=== PATIENT | female | born 1960 | race Caucasian/White ===

== ENCOUNTER 2016-11-08 19:56 | Emergency (ER) | payer OTHER ==
[~2016-11-08] VITALS: Ht 165.1 cm; Wt 90.7 kg
[~2016-11-08 19:56] MED LIST: '''ZYRTEC PO; ADVAIR 100/501 E1; ADVAIR 100/501 E1 INH; ALBUTEROL0.09 MG/A2 IH; ASPIRIN81 MG PO; AUGMENTIN 875875 MG PO; BIOTIN1 M1 PO; BUPROPION HYDR150 M4 PO; CETIRIZINE10 MG PO; CLARITIN10 MG PO; COLACE100 MG PO; DAYPRO600 M1 PO; FLEXERIL10 MG PO; FLONASE ALLERG9.9 ML NAS; GOOD SENSE ALLE10 MG PO; HYDROXYZINE HCL50 MG PO; MAXZIDE 25 MG-31 TAB PO; MEDROL DOSEPAK4 MG PO; MIDRIN (DURADR1 CAP PO; MOTRIN800 MG PO; MULTIVITAMIN FO1 CAP PO; Motrin,Rufen800 MG PO; NAPROSYN500 MG PO; NASONEX0.05 MG/AC NS; PREDNICOT20 MG PO; PREDNISONE10 MG PO; PREDNISONE20 MG PO; PRILOSEC20 MG PO; ROBITUSSIN AC 110 ML PO; TESSALON PERLE100 M1 PO; TOBRADEX 0.1%-0.5 ML OPH; TRAMADOL HCL50 MG PO; TRIAMTERENE/HCT1 TA3 PO; TYLENOL500 MG PO; VENTOLIN H0.09 MG/AC INH; VIBRAMYCIN100 MG PO; VICODIN 5/500 505 MG PO; VICODIN 500 MG-1 TAB PO; ZITHROMAX250 MG PO; ZOFRAN4 MG PO
== END 2016-11-08 22:18 | disposition home or self-care (01) ==
LOC: ED 19:56
DX: G89.29 Other chronic pain (principal); M25.561 Pain in right knee; Z90.49 Acquired absence of other specified parts of digestive tract; Z79.82 Long term (current) use of aspirin; Z88.1 Allergy status to other antibiotic agents

== ENCOUNTER → 2016-11-25 | Outpatient (CLI) | payer OTHER | END | disposition home or self-care (01) | LOC: MAMMO 11-19 11:30 | DX: Z12.31 Encounter for screening mammogram for malignant neoplasm of breast (principal) ==

== ENCOUNTER 2017-02-02 14:16 | Emergency (ER) | payer OTHER ==
[~2017-02-02] VITALS: Wt 117.9 kg
[2017-02-02] MEDS ORDERED: CITALOPRAM HYDR40 MG PO (14:21)
[2017-02-02] MEDS ORDERED: MEDROL DOSEPAK4 MG PO (15:25)
[2017-02-02] MEDS ORDERED: ZITHROMAX250 MG PO (15:25)
[2017-02-02] MEDS ORDERED: VENTOLIN H0.09 MG/AC INH (15:25)
== END 2017-02-02 15:32 | disposition home or self-care (01) ==
LOC: ED 14:16
DX: J68.0 Bronchitis and pneumonitis due to chemicals, gases, fumes and vapors (principal); J45.909 Unspecified asthma, uncomplicated; Z88.1 Allergy status to other antibiotic agents; Z79.82 Long term (current) use of aspirin; Z79.899 Other long term (current) drug therapy

== ENCOUNTER 2017-02-14 21:37 | Emergency (ER) | payer OTHER ==
[~2017-02-14] VITALS: Ht 167.6 cm; Wt 99.8 kg
[~2017-02-14 21:37] MED LIST changes: +CITALOPRAM HYDR40 MG PO
[2017-02-14 22:20] LABS: BASO # 0.1 10*3/uL (0.0-0.1); BASO % 0.8 % (0.0-1.0); EOS # 0.1 10*3/uL (0.0-0.4); EOS % 1.1 % (1.0-4.0); HEMATOCRIT 36.7 % (37.0-47.0); HEMOGLOBIN 11.6 g/dl (12.0-16.0); LYMPH % 49.3 % (27.0-41.0); MEAN CELL VOLUME 90.2 fl (81.0-99.0); MEAN CORPUSCULAR HGB 28.5 pg (27.0-31.0); MEAN CORPUSCULAR HGB CONC 31.6 g/dl (33.0-37.0); MEAN PLATELET VOLUME 9.3 fl (9.6-12.3); MONO # 0.6 10*3/uL (0.1-1.0); MONO % 10.1 % (3.0-9.0); NEUT # 2.4 10*3/uL (2.3-7.9); NEUT % 38.5 % (47.0-73.0); PLATELET COUNT AUTOMATED 190 10*3/uL (130-400); RED BLOOD COUNT 4.07 10*6/uL (4.10-5.10); RED CELL DISTRI WIDTH 13.4 % (0-14.5); WHITE BLOOD COUNT 6.2 10*3/uL (4.8-10.8)
[2017-02-14 22:31] LABS: BUN 20 mg/dl (7-24); CARBON DIOXIDE 26 mmol/L (21-32); CHLORIDE 108 mmol/L (98-107); EST GLOM FILT AFRICAN AMERICAN > 60 ml/min; GLUCOSE 113 mg/dL (65-99); POTASSIUM 3.6 mmol/L (3.5-5.1); SODIUM 146 mmol/L (136-145)
[2017-02-14] MEDS ORDERED: CLINDAMYCIN HC300 MG PO ×2 (22:53→22:59)
[2017-02-14] MEDS ORDERED: LIDEX 0.05% CRE15 GM T ×2 (22:53→22:59)
== END 2017-02-15 00:04 | disposition home or self-care (01) ==
LOC: ED 21:37
PROVIDERS: Physician Assistant
DX: L03.116 Cellulitis of left lower limb (principal); Z88.1 Allergy status to other antibiotic agents; Z79.82 Long term (current) use of aspirin; Z90.49 Acquired absence of other specified parts of digestive tract; Z79.899 Other long term (current) drug therapy

== ENCOUNTER → 2017-04-22 | Day surgery (SDC) | payer OTHER ==
[~2017-04-22] VITALS: Ht 165.1 cm; Wt 113.4 kg
[~2017-04-22] MED LIST changes: +ALLERGY RELIEF10 M3 PO; +B12,B-12,B 12500 MC1 PO; +CLINDAMYCIN HC300 MG PO; +LIDEX 0.05% CRE15 GM T; +PERI-COLACE TA1 EACH PO; +PROTONIX40 MG PO
--- NOTE | ~2017-04-22 | O ---
[place], [place] OPERATIVE NOTE NAME: ARLEN ROMAN UNIT #: [id number] ROOM: DOCTOR: ELLYN SOMMER,NGHIA BIRTHDATE: [birth year] DOS: 04/22/2017 INDICATIONS: The patient has presented with history of anemia, dyspepsia, H and H of 11 and 36. PROCEDURE: Today's procedure part of investigation is panendoscopy plus biopsy and photographic series. PREMEDICATION: Versed and Diprivan. SCOPE: Olympus forward-viewing gastroscope Q10 video. REPORT: After putting the patient in the left lateral position and after application of lubricant to the scope, the scope was introduced. Thereafter, under direct visualization, I advanced through the length of esophagus without difficulty. A small hiatal hernia was noticed. Gastric pouch was entered. Multiple antral small ulcerations were noticed, photographed, biopsied from margin of 1 was obtained. Duodenal bulb, second and third part within normal limits. The patient extubated along the lesser curvature and gradually air was suctioned out and tolerated procedure well. IMPRESSION: Multiple small antral ulcerations, small hiatal hernia, status post biopsy. PLAN AND DISCUSSION: Protonix 40 mg daily and clinical reassessment. Follow up routinely with you in office, p.r.n. visit with us in GI Clinic. Source of anemia, borderline, is presence of multiple small antral ulcerations. Thank you again for your kind referral. NGHIA RAGLAND MD CM:OPRECORD:OPERATIVE NOTE [id number] CHONG RAGLAND MD 04/22/17 1351 interface
--- NOTE | ~2017-04-22 | O ---
[place], [place] OPERATIVE NOTE NAME: ARLEN ROMAN UNIT #: [id number] ROOM: DOCTOR: NGHIA RAGLAND MD BIRTHDATE: [birth year] DOS: 04/22/2017 GASTROENDOSCOPIC REPORT. INDICATIONS: A 56-year-old patient who has presented with chief complaint of anemia, undergoing investigation. FAMILY HISTORY: Colonic carcinoma in father. ALLERGIES: No known medication. PAST SURGICAL HISTORY: Right knee, appendectomy, elbow, right breast, benign biopsy. PAST MEDICAL HISTORY: Hypertension, anxiety. SOCIAL HISTORY: Nonsmoker and social alcohol consumer. PROCEDURE: Todays' procedure part of investigation is colonoscopy panendoscopy. PREMEDICATION: Versed and Diprivan. SCOPE: Olympus folding colonoscope 10L video. REPORT: After putting the patient in the left lateral position and after application of lubricant to rectum, the scope was introduced under direct visualization, advanced through the very tortuous sigmoid colon, all the way to the cecum. Ileocecal valve was defined. Appendiceal orifice identified. Scope was gradually withdrawn from ascending, transverse, descending colon. The patient extubated, tolerated procedure well. IMPRESSION: Tortuous sigmoid colon, no evidence of pathology. PLAN AND DISCUSSION: I am going to proceed with panendoscopy. [place], [place] OPERATIVE NOTE NAME: ARLEN ROMAN UNIT #: [id number] ROOM: DOCTOR: NGHIA RAGLAND MD BIRTHDATE: [birth year] NGHIA RAGLAND MD CM:OPRECORD:OPERATIVE NOTE [id number] NGHIA RAGLAND MD 04/22/17 1348 interface
[2017-04-22 09:55] VITALS: BP 125/74
[2017-04-22 10:19] VITALS: BP 117/57
[2017-04-22 10:35] VITALS: BP 103/52
[2017-04-22 10:50] VITALS: BP 111/83
== END | disposition home or self-care (01) ==
LOC: SDC 04-17 13:15
DX: K29.50 Unspecified chronic gastritis without bleeding (principal); K44.9 Diaphragmatic hernia without obstruction or gangrene; I10 Essential (primary) hypertension; J45.909 Unspecified asthma, uncomplicated; K25.9 Gastric ulcer, unspecified as acute or chronic, without hemorrhage or perforation; K63.89 Other specified diseases of intestine; F41.9 Anxiety disorder, unspecified; D64.9 Anemia, unspecified; Z80.0 Family history of malignant neoplasm of digestive organs; Z90.49 Acquired absence of other specified parts of digestive tract; Z98.890 Other specified postprocedural states; Z96.651 Presence of right artificial knee joint; Z82.49 Family history of ischemic heart disease and other diseases of the circulatory system; Z87.891 Personal history of nicotine dependence; Z88.1 Allergy status to other antibiotic agents

== ENCOUNTER → 2017-05-01 | Outpatient (CLI) | payer OTHER ==
[2017-05-01 10:58] LABS: HEMATOCRIT 39.5 % (37.0-47.0); HEMOGLOBIN 12.6 g/dl (12.0-16.0); MEAN CELL VOLUME 89.8 fl (81.0-99.0); MEAN CORPUSCULAR HGB 28.6 pg (27.0-31.0); MEAN CORPUSCULAR HGB CONC 31.9 g/dl (33.0-37.0); MEAN PLATELET VOLUME 9.9 fl (9.6-12.3); RED BLOOD COUNT 4.4 10*6/uL (4.10-5.10); RED CELL DISTRI WIDTH 13.3 % (0-14.5); WHITE BLOOD COUNT 4.1 10*3/uL (4.8-10.8)
[2017-05-01 11:25] LABS: ALBUMIN 3.8 gm/dl (3.1-4.5); BUN 22 mg/dl (7-24); CHLORIDE 106 mmol/L (98-107); CHOLESTEROL 199 mg/dL (<200); CREATININE 0.91 mg/dL (0.55-1.02); HDL CHOLESTEROL 99 mg/dl (40-60); LDL CHOLESTEROL 92 mg/dL (9-159); POTASSIUM 4.1 mmol/L (3.5-5.1); SGOT/AST 22 IU/L (3-35); SODIUM 143 mmol/L (136-145); TRIGLYCERIDES 41 mg/dl (<150); VLDL CHOLESTEROL 8 mg/dL (6-40)
[2017-05-01 11:27] LABS: ALKALINE PHOSPHATASE 88 U/L (45-117); SGPT/ALT 26 U/L (12-78); TOTAL PROTEIN 7.2 gm/dL (6.4-8.2)
== END | disposition home or self-care (01) ==
LOC: LAB 10:32
PROVIDERS: Family Medicine
DX: K21.9 Gastro-esophageal reflux disease without esophagitis (principal); E55.9 Vitamin D deficiency, unspecified; E66.9 Obesity, unspecified; K29.70 Gastritis, unspecified, without bleeding; E78.00 Pure hypercholesterolemia, unspecified; F41.1 Generalized anxiety disorder; E74.00 Glycogen storage disease, unspecified

== ENCOUNTER 2017-07-22 19:22 | Emergency (ER) | payer OTHER ==
[~2017-07-22] VITALS: Wt 136.1 kg
== END 2017-07-22 21:19 | disposition home or self-care (01) ==
LOC: ED 19:22
DX: S80.01XA Contusion of right knee, initial encounter (principal); Z88.1 Allergy status to other antibiotic agents; Z79.82 Long term (current) use of aspirin; Z79.899 Other long term (current) drug therapy; Z90.49 Acquired absence of other specified parts of digestive tract; Z96.651 Presence of right artificial knee joint; W19.XXXA Unspecified fall, initial encounter; Y93.89 Activity, other specified; Y92.89 Other specified places as the place of occurrence of the external cause; Y99.8 Other external cause status

== ENCOUNTER 2017-09-02 18:07 | Emergency (ER) | payer OTHER ==
[~2017-09-02] VITALS: Ht 167.6 cm; Wt 90.7 kg
[2017-09-02 18:57] LABS: BASO % 0.5 % (0.0-1.0); EOS # 0.1 10*3/uL (0.0-0.4); EOS % 1.4 % (1.0-4.0); HEMATOCRIT 37.7 % (37.0-47.0); HEMOGLOBIN 12.4 g/dl (12.0-16.0); LYMPH # 2.4 10*3/uL (1.3-4.4); LYMPH % 42.1 % (27.0-41.0); MEAN CELL VOLUME 88.5 fl (81.0-99.0); MEAN CORPUSCULAR HGB 29.1 pg (27.0-31.0); MEAN CORPUSCULAR HGB CONC 32.9 g/dl (33.0-37.0); MEAN PLATELET VOLUME 9.4 fl (9.6-12.3); MONO # 0.5 10*3/uL (0.1-1.0); MONO % 9.3 % (3.0-9.0); NEUT # 2.6 10*3/uL (2.3-7.9); NEUT % 46.5 % (47.0-73.0); PLATELET COUNT AUTOMATED 218 10*3/uL (130-400); RED BLOOD COUNT 4.26 10*6/uL (4.10-5.10); RED CELL DISTRI WIDTH 13.3 % (0-14.5); WHITE BLOOD COUNT 5.6 10*3/uL (4.8-10.8)
[2017-09-02 19:12] LABS: ALBUMIN 3.8 gm/dl (3.1-4.5); ALKALINE PHOSPHATASE 89 U/L (45-117); BUN 20 mg/dl (7-24); CHLORIDE 106 mmol/L (98-107); CREATININE 0.94 mg/dL (0.55-1.02); LIPASE 109 U/L (73-393); POTASSIUM 3.7 mmol/L (3.5-5.1); SGOT/AST 24 IU/L (3-35); SGPT/ALT 32 U/L (12-78); SODIUM 141 mmol/L (136-145); TOTAL PROTEIN 7.2 gm/dL (6.4-8.2)
[2017-09-02 19:48] LABS: BILIRUBIN NEGATIVE (NEGATIVE); BLOOD NEGATIVE (NEGATIVE); CLARITY CLEAR (CLEAR); COLOR YELLOW (YELLOW); GLUCOSE NEGATIVE (NEGATIVE); KETONE NEGATIVE (NEGATIVE); LEUKO ESTERASE TRACE (NEGATIVE); NITRITE NEGATIVE (NEGATIVE); UROBILINOGEN 0.2 E.U./dl (0.2-1.0)
[2017-09-02 19:58] LABS: BACTERIA TRACE
== END 2017-09-02 22:14 | disposition home or self-care (01) ==
LOC: ED 18:07
PROVIDERS: Physician Assistant
DX: R10.9 Unspecified abdominal pain (principal); Z88.1 Allergy status to other antibiotic agents; Z79.82 Long term (current) use of aspirin; Z79.899 Other long term (current) drug therapy

== ENCOUNTER → 2017-09-06 | Outpatient (CLI) | payer OTHER ==
[2017-09-06 11:17] LABS: BASO % 0.7 % (0.0-1.0); EOS # 0.1 10*3/uL (0.0-0.4); EOS % 1.2 % (1.0-4.0); HEMATOCRIT 38.7 % (37.0-47.0); HEMOGLOBIN 12.6 g/dl (12.0-16.0); LYMPH # 1.7 10*3/uL (1.3-4.4); LYMPH % 41.8 % (27.0-41.0); MEAN CELL VOLUME 88.6 fl (81.0-99.0); MEAN CORPUSCULAR HGB 28.8 pg (27.0-31.0); MEAN CORPUSCULAR HGB CONC 32.6 g/dl (33.0-37.0); MEAN PLATELET VOLUME 9.3 fl (9.6-12.3); MONO # 0.4 10*3/uL (0.1-1.0); MONO % 9.3 % (3.0-9.0); NEUT # 1.9 10*3/uL (2.3-7.9); NEUT % 46.8 % (47.0-73.0); PLATELET COUNT AUTOMATED 212 10*3/uL (130-400); RED BLOOD COUNT 4.37 10*6/uL (4.10-5.10); RED CELL DISTRI WIDTH 13.4 % (0-14.5); WHITE BLOOD COUNT 4.1 10*3/uL (4.8-10.8)
[2017-09-06 11:45] LABS: ALKALINE PHOSPHATASE 90 U/L (45-117); BUN 23 mg/dl (7-24); CHLORIDE 105 mmol/L (98-107); CHOLESTEROL 220 mg/dL (<200); CREATININE 1.04 mg/dL (0.55-1.02); HDL CHOLESTEROL 124 mg/dl (40-60); LDL CHOLESTEROL 88 mg/dL (9-159); SGOT/AST 26 IU/L (3-35); SGPT/ALT 37 U/L (12-78); SODIUM 142 mmol/L (136-145); TOTAL PROTEIN 7.4 gm/dL (6.4-8.2); TRIGLYCERIDES 39 mg/dl (<150); VLDL CHOLESTEROL 8 mg/dL (6-40)
[2017-09-06 13:05] LABS: VITAMIN D, 25-HYDROXY 27.5 ng/mL (30-100)
== END | disposition home or self-care (01) ==
LOC: LAB 10:52
PROVIDERS: Family Medicine
DX: K21.9 Gastro-esophageal reflux disease without esophagitis (principal); E55.9 Vitamin D deficiency, unspecified; E74.9 Disorder of carbohydrate metabolism, unspecified; R53.83 Other fatigue; E66.9 Obesity, unspecified

== ENCOUNTER → 2017-10-28 | Outpatient (CLI) | payer OTHER | END | disposition home or self-care (01) | LOC: RAD 14:21 | DX: S86.911A Strain of unspecified muscle(s) and tendon(s) at lower leg level, right leg, initial encounter (principal); Z91.81 History of falling; X58.XXXA Exposure to other specified factors, initial encounter; Y93.89 Activity, other specified; Y92.89 Other specified places as the place of occurrence of the external cause; Y99.8 Other external cause status ==

== ENCOUNTER → 2017-12-22 | Outpatient (CLI) | payer OTHER | END | disposition home or self-care (01) | LOC: MAMMO 13:58 | DX: N64.4 Mastodynia (principal); R92.8 Other abnormal and inconclusive findings on diagnostic imaging of breast; N63.0 Unspecified lump in unspecified breast; L53.9 Erythematous condition, unspecified ==